=== PATIENT | male | born 1955 | race Caucasian/White ===

== ENCOUNTER 2023-03-08 13:49 | Emergency (ER) | payer MEDICAID ==
[~2023-03-08] VITALS: Ht 167.6 cm; Wt 59.0 kg
[2023-03-08 14:11] VITALS: BP 205/85; PULSE 61; RESP 18; TEMP 97.5; O2SAT 98
[2023-03-08 16:58] LABS: BASOPHILS % 0.8 % (0.0-2.0); EOSINOPHILS % 2.6 % (0.0-5.0); HEMOGLOBIN. 11.9 g/dL (14.0-18.0); LYMPHOCYTES % 11.2 % (20.0-50.0); MEAN CORPUSCULAR HEMOGLOBIN 27.9 pg (28.0-32.0); MEAN CORPUSCULAR HGB CONC 33.1 g/dL (31.0-37.0); MEAN CORPUSCULAR VOLUME 84.1 fL (80.0-94.0); MEAN PLATELET VOLUME 10.1 fl (7.4-10.4); MONOCYTES % 11.2 % (2.0-8.0); NEUTROPHILS % 74.2 % (40.0-76.0); PLATELET 130 x1000/uL (130-400); RED BLOOD CELL COUNT 4.28 mill/uL (4.7-6.1); RED CELL DISTRIBUTION WIDTH 16.7 % (11.6-14.6); WHITE BLOOD COUNT 5.3 x1000/uL (4.5-11.0)
== END 2023-03-08 17:55 | disposition home or self-care (01) ==
LOC: ER 14:41 → SUPCPDRO 16:40 → ER 17:55
DX: T82.838A Hemorrhage due to vascular prosthetic devices, implants and grafts, initial encounter (principal); E11.9 Type 2 diabetes mellitus without complications; I12.0 Hypertensive chronic kidney disease with stage 5 chronic kidney disease or end stage renal disease; E11.22 Type 2 diabetes mellitus with diabetic chronic kidney disease; N18.6 End stage renal disease; Z99.2 Dependence on renal dialysis; Z98.890 Other specified postprocedural states; Y82.8 Other medical devices associated with adverse incidents; Y92.89 Other specified places as the place of occurrence of the external cause
CPT/HCPCS: 36415; 85025; 93922; 99284

== ENCOUNTER 2024-02-23 13:26 | Emergency (ER) | payer MEDICAID ==
[~2024-02-23] VITALS: Ht 162.6 cm; Wt 75.0 kg
[2024-02-23 13:28] VITALS: TEMP 98; O2SAT 97
[2024-02-23 16:33] LABS: BASOPHILS % 1.4 % (0.0-2.0); EOSINOPHILS % 5.8 % (0.0-5.0); HEMATOCRIT. 30.4 % (42.0-52.0); HEMOGLOBIN. 9.8 g/dL (14.0-18.0); LYMPHOCYTES % 9.4 % (20.0-50.0); MEAN CORPUSCULAR HEMOGLOBIN 27.8 pg (28.0-32.0); MEAN CORPUSCULAR HGB CONC 32.3 g/dL (31.0-37.0); MEAN PLATELET VOLUME 8.6 fl (7.4-10.4); MONOCYTES % 13.3 % (2.0-8.0); NEUTROPHILS % 70.1 % (40.0-76.0); PLATELET 345 x1000/uL (130-400); RED BLOOD CELL COUNT 3.54 mill/uL (4.7-6.1); RED CELL DISTRIBUTION WIDTH 20.5 % (11.6-14.6); WHITE BLOOD COUNT 5.4 x1000/uL (4.5-11.0)
[2024-02-23 16:34] LABS: CHLORIDE 94 mEq/L (98-107); POTASSIUM 3.5 mEq/L (3.5-5.1); SODIUM 131 mEq/L (136-145)
[2024-02-23 16:35] LABS: CALCIUM 8.2 mg/dL (8.7-10.4); CARBON DIOXIDE 31 mEq/L (21-32)
[2024-02-23 16:40] LABS: CREATININE 3.7 mg/dL (0.6-1.3); GLUCOSE 213 mg/dL (70-105); UREA NITROGEN BLOOD 13 mg/dL (9-23)
[2024-02-23 16:41] LABS: TROPONIN I HIGH SENSITIVITY 29 ng/L (3.0-53)
[2024-02-23] MEDS ORDERED: HYDR-4001 MT (18:37)
[2024-02-23 18:50] VITALS: BP 130/70; PULSE 80; RESP 15
[2024-02-23] MEDS: HYDROCODONE/ACETAMINOPHEN 7.5/325MG TABLET PO ONE (18:50)
== END 2024-02-23 19:07 | disposition home or self-care (01) ==
LOC: ER 13:26
DX: E11.621 Type 2 diabetes mellitus with foot ulcer (principal); E11.22 Type 2 diabetes mellitus with diabetic chronic kidney disease; I12.9 Hypertensive chronic kidney disease with stage 1 through stage 4 chronic kidney disease, or unspecified chronic kidney disease; N18.6 End stage renal disease; Z98.890 Other specified postprocedural states
CPT/HCPCS: 80048; 83880; 83605; 85025; 84484; 36415; 71045; 93005; 99285; Z7610